=== PATIENT | male | born 1970 | race Caucasian/White ===

== ENCOUNTER 2021-07-06 15:52 | Emergency (ER) | payer MEDICARE ==
[2021-07-06] MEDS ORDERED: Sodium Chloride 0.9% 1000 ML 1,000 ML IV STA ×2 (16:10→17:44)
--- NOTE | 2021-07-06 16:49 | ERPHSYRPT ---
- History of Present Illness Time Seen by Provider: 07/06/21 16:02 Source: patient, EMS Exam Limitations: no limitations Patient Subjective Stated Complaint: R leg weakness Triage Nursing Assessment: pt to ED by EMS c/o R lower extremity weakness x 5 days and fall today. pt states his father called EMS for him after fall. normally ambulates with assistance. denies pain now. not anticoagulated, no LOC. denies neurologic hx. Physician History: 51 years old morbidly obese male with history of hypertension, diabetes amber litus, GERD, GB syndrome, ambulates with assistance presented in the ER via EMS with chief complaint of worsening generalized weakness for the last 5 days. Patient reports decreased oral intake, increased sleepiness without any chest pain palpitations or shortness of breath. No abdominal pain nausea or vomiting reported. Does have chronic diarrhea which is not any worse than usual. No fever or chills reported. Patient reports earlier he was trying to ambulate and his legs gave way and had a fall. Did not hit his head or loss of consciousness. Denies any known sick contact. Timing/Duration: day(s) (5), gradual onset, worse Severity: moderate Associated Symptoms: loss of appetite, weakness, No nausea, No vomiting, No abdominal pain, No shortness of breath, No heartburn, No diaphoresis, No cough, No chills, No chest pain, No fever, No headaches, No syncope, No seizure Allergies/Adverse Reactions: No Known Drug Allergies Allergy (Unverified 07/06/21 16:05) Home Medications: Glipizide 2.5 mg [Glucotrol Xl 2.5 MG] 2.5 mg PO DAILY 07/06/21 [History] Lisinopril 10 mg [Zestril 10 MG] 10 mg PO DAILY 07/06/21 [History] Metformin HCl 500 mg [Glucophage 500 MG] 500 mg PO BIDWM 07/06/21 [History] Omeprazole 10 mg PO DAILY 07/06/21 [History] Hx Tetanus, Diphtheria Vaccination/Date Given: No Hx Influenza Vaccination/Date Given: No Hx Pneumococcal Vaccination/Date Given: No Immunizations Up to Date: No Travel Risk - International Travel Have you traveled outside of the country in past 3 weeks: No - Coronavirus Screening Are you exhibiting any of the following symptoms?: No Close contact with a COVID-19 positive Pt in past 14-21 Days: No - Vaccine Status Have you recieved a Covid-19 vaccination: No - Review of Systems Constitutional: Fatigue, Weakness Eyes: No Symptoms Ears, Nose, & Throat: No Symptoms Respiratory: No Symptoms Cardiac: No Symptoms Abdominal/Gastrointestinal: Diarrhea Genitourinary Symptoms: No Symptoms Musculoskeletal: No Symptoms Skin: No Symptoms Neurological: No Symptoms Psychological: No Symptoms Endocrine: No Symptoms Hematologic/Lymphatic: No Symptoms - Past Medical History Pertinent Past Medical History: Yes Cardiac History: High Cholesterol, Hypertension Endocrine Medical History: Diabetes Type II GI Medical History: GERD Other Medical History: diana daniel, - Past Surgical History Past Surgical History: Yes Gastrointestinal: Cholecystectomy - Social History Smoking Status: Current every day smoker How long have you smoked: years Exposure to second hand smoke: Yes Drug Use: none Patient Lives Alone: No Significant Family History: no pertinent family hx - Nursing Vital Signs Nursing Vital Signs: Initial Vital Signs Temperature 97.5 F 07/06/21 15:55 Pulse Rate 106 H 07/06/21 15:55 Respiratory Rate 19 07/06/21 15:55 Blood Pressure 143/90 07/06/21 15:55 O2 Sat by Pulse Oximetry 96 07/06/21 15:55 Pain Scale Pain Intensity 0 - Physical Exam General Appearance: no apparent distress, alert Eye Exam: PERRL/EOMI, eyes nml inspection Ears, Nose, Throat Exam: normal ENT inspection, pharynx normal Neck Exam: normal inspection, non-tender, supple, full range of motion Respiratory Exam: normal breath sounds, lungs clear Cardiovascular Exam: regular rate/rhythm, normal heart sounds Gastrointestinal/Abdomen Exam: soft, normal bowel sounds, No tenderness Back Exam: normal inspection Extremity Exam: normal inspection, normal range of motion Neurologic Exam: alert, oriented x 3, cooperative, exterminator helper II-XII nml as tested, normal mood/affect, nml cerebellar function, sensation nml Skin Exam: normal color SpO2 Interpretation: normal SpO2: 96 O2 Delivery: Room Air - Course EKG Interpreted by Me: RATE ([id number]), Sinus Tach, NORMAL AXIS, NORMAL INTERVALS, Non-specific ST Changes Ordered Tests: Active Orders 24 hr Category Date Time Status EKG-ER Only STAT Care 07/06/21 16:10 Active IV Insertion STAT Care 07/06/21 16:10 Active CHEST 1 VIEW (PORTABLE) Stat Exams 07/06/21 16:11 Completed BLOOD CULTURE Stat Lab 07/06/21 16:40 Received CBC W DIFF Stat Lab 07/06/21 16:15 Completed CMP Stat Lab 07/06/21 16:15 Completed CULTURE,URINE Stat Lab 07/06/21 16:11 Received Lactic Acid Stat Lab 07/06/21 16:10 Completed Lactic Acid Stat Lab 07/06/21 18:42 Completed MAGNESIUM Stat Lab 07/06/21 16:15 Completed NT PRO BNP Stat Lab 07/06/21 16:15 Completed TROPONIN Q3H Lab 07/06/21 16:15 Completed TROPONIN Q3H Lab 07/06/21 19:00 Completed TROPONIN Q3H Lab 07/06/21 22:15 Ordered TROPONIN Q3H Lab 07/07/21 01:15 Ordered TROPONIN Q3H Lab 07/07/21 04:15 Ordered TSH, 3RD Generation Stat Lab 07/06/21 16:15 Completed UA W/RFX UR CULTURE Stat Lab 07/06/21 16:11 Completed Medication Summary Discontinued Medications Generic Name Dose Route Start Last Admin Trade Name Freq PRN Reason Stop Dose Admin Sodium Chloride 1,000 mls @ 999 mls/hr 07/06/21 16:10 07/06/21 18:13 Sodium Chloride 0.9% 1000 Ml IV 07/06/21 17:10 Infused .Q1H1M STA Infusion Sodium Chloride Confirm 07/06/21 17:07 Sodium Chloride 0.9% 1000 Ml Administered 07/06/21 17:08 Dose 1,000 mls @ ud .ROUTE .STK-MED ONE Ceftriaxone Sodium/Dextrose 2 g in 50 mls @ 100 mls/hr 07/06/21 17:22 07/06/21 18:13 Rocephin 2 Gm-D5w 50ml Bag IV 07/06/21 17:51 Infused STAT STA Infusion Ceftriaxone Sodium/Dextrose Confirm 07/06/21 17:42 Rocephin 2 Gm-D5w 50ml Bag Administered 07/06/21 17:43 Dose 2 g in 50 mls @ ud IV .STK-MED ONE Sodium Chloride 1,000 mls @ 999 mls/hr 07/06/21 17:44 07/06/21 17:54 Sodium Chloride 0.9% 1000 Ml IV 07/06/21 18:44 150 mls/hr .Q1H1M STA Administration Sodium Chloride Confirm 07/06/21 17:53 Sodium Chloride 0.9% 1000 Ml Administered 07/06/21 17:54 Dose 1,000 mls @ ud .ROUTE .K-MED ONE Potassium Chloride 40 meq 07/06/21 17:56 07/06/21 18:01 Potassium Chloride 10 Meq Tablet PO 07/06/21 17:57 40 meq STAT ONE Administration Potassium Chloride Confirm 07/06/21 18:00 Potassium Chloride 10 Meq Tablet Administered 07/06/21 18:01 Dose 40 meq PO .STK-MED ONE Lab/Rad Data: Laboratory Result Diagrams 07/06/21 16:15 07/06/21 16:15 Laboratory Results 07/06/21 07/06/21 07/06/21 Range/Units 19:00 18:42 16:15 WBC (4.0-10.5) K/mm3 RBC (4.1-5.6) M/mm3 Hgb (12.5-18.0) gm/dl Hct (42-50) % MCV (78-100) fl MCH (26-32) pg MCHC (32-36) g/dl RDW (11.5-14.0) % Plt Count (150-450) K/mm3 MPV (7.5-11.0) fl Gran % (36.0-66.0) % Eos # (Auto) (0-0.5) Absolute Lymphs (auto) (1.0-4.6) Absolute Monos (auto) (0.0-1.3) Lymphocytes % (24.0-44.0) % Monocytes % (0.0-12.0) % Eosinophils % (0.00-5.0) % Basophils % (0.0-0.4) % Absolute Granulocytes (1.4-6.9) Basophils # (0-0.4) Sodium (137-145) mmol/L Potassium (3.5-5.1) mmol/L Chloride (98-107) mmol/L Carbon Dioxide (22-30) mmol/L Anion Gap (5-15) MEQ/L BUN (9-20) mg/dL Creatinine (0.66-1.25) mg/dL Estimated GFR ML/MIN Glucose (74-106) mg/dL Lactic Acid 1.5 (0.4-2.0) Calcium (8.4-10.2) mg/dL Magnesium (1.6-2.3) mg/dL Total Bilirubin (0.2-1.3) mg/dL AST (17-59) U/L ALT (0-50) U/L Alkaline Phosphatase (38-126) U/L Troponin I < 0.012 < 0.012 (0.000-0.034) ng/mL NT-Pro-B Natriuret Pep (0-900) pg/mL Serum Total Protein (6.3-8.2) g/dL Albumin (3.5-5.0) g/dL TSH 3rd Generation (0.47-4.68) mIU/L Urine Color (YELLOW) Urine Appearance (CLEAR) Urine pH (5-6) Ur Specific Hammond (1.005-1.025) Urine Protein (Negative) Urine Ketones (NEGATIVE) Urine Blood (0-5) Logan/ul Urine Nitrite (NEGATIVE) Urine Bilirubin (NEGATIVE) Urine Urobilinogen (0-1) mg/dL Ur Leukocyte Esterase (NEGATIVE) Urine WBC (Auto) (0-5) /HPF Urine RBC (Auto) (0-2) /HPF U Hyaline Cast (Auto) (0-2) /LPF U Epithel Cells (Auto) (FEW) /HPF Urine Bacteria (Auto) (NEGATIVE) /HPF Urine Mucus (Auto) (NEGATIVE) /HPF Urine Culture Reflexed (NO) Urine Glucose (NEGATIVE) mg/dL 07/06/21 07/06/21 07/06/21 Range/Units 16:15 16:15 16:11 WBC 11.2 H (4.0-10.5) K/mm3 RBC 5.00 (4.1-5.6) M/mm3 Hgb 14.7 (12.5-18.0) gm/dl Hct 45.0 (42-50) % MCV 90.0 (78-100) fl MCH 29.4 (26-32) pg MCHC 32.7 (32-36) g/dl RDW 13.8 (11.5-14.0) % Plt Count 223 (150-450) K/mm3 MPV 11.8 H (7.5-11.0) fl Gran % 80.8 H (36.0-66.0) % Eos # (Auto) 0.05 (0-0.5) Absolute Lymphs (auto) 1.38 (1.0-4.6) Absolute Monos (auto) 0.71 (0.0-1.3) Lymphocytes % 12.3 L (24.0-44.0) % Monocytes % 6.3 (0.0-12.0) % Eosinophils % 0.4 (0.00-5.0) % Basophils % 0.2 (0.0-0.4) % Absolute Granulocytes 9.03 H (1.4-6.9) Basophils # 0.02 (0-0.4) Sodium 140 (137-145) mmol/L Potassium 3.2 L (3.5-5.1) mmol/L Chloride 101 (98-107) mmol/L Carbon Dioxide 26 (22-30) mmol/L Anion Gap 16.1 H (5-15) MEQ/L BUN 20 (9-20) mg/dL Creatinine 1.00 (0.66-1.25) mg/dL Estimated GFR > 60.0 ML/MIN Glucose 164 H (74-106) mg/dL Lactic Acid (0.4-2.0) Calcium 9.4 (8.4-10.2) mg/dL Magnesium 2.1 (1.6-2.3) mg/dL Total Bilirubin 0.80 (0.2-1.3) mg/dL AST 44 (17-59) U/L ALT 56 H (0-50) U/L Alkaline Phosphatase 80 (38-126) U/L Troponin I (0.000-0.034) ng/mL NT-Pro-B Natriuret Pep 53.0 (0-900) pg/mL Serum Total Protein 7.2 (6.3-8.2) g/dL Albumin 4.1 (3.5-5.0) g/dL TSH 3rd Generation 1.160 (0.47-4.68) mIU/L Urine Color TALI (YELLOW) Urine Appearance CLOUDY (CLEAR) Urine pH 5.0 (5-6) Ur Specific Hammond 1.027 (1.005-1.025) Urine Protein 100 (Negative) Urine Ketones NEGATIVE (NEGATIVE) Urine Blood NEGATIVE (0-5) Logan/ul Urine Nitrite NEGATIVE (NEGATIVE) Urine Bilirubin NEGATIVE (NEGATIVE) Urine Urobilinogen 4 (0-1) mg/dL Ur Leukocyte Esterase NEGATIVE (NEGATIVE) Urine WBC (Auto) 6-10 (0-5) /HPF Urine RBC (Auto) 0-2 (0-2) /HPF U Hyaline Cast (Auto) 3-5 (0-2) /LPF U Epithel Cells (Auto) RARE (FEW) /HPF Urine Bacteria (Auto) RARE (NEGATIVE) /HPF Urine Mucus (Auto) MANY (NEGATIVE) /HPF Urine Culture Reflexed YES (NO) Urine Glucose NEGATIVE (NEGATIVE) mg/dL 07/06/21 Range/Units 16:10 WBC (4.0-10.5) K/mm3 RBC (4.1-5.6) M/mm3 Hgb (12.5-18.0) gm/dl Hct (42-50) % MCV (78-100) fl MCH (26-32) pg MCHC (32-36) g/dl RDW (11.5-14.0) % Plt Count (150-450) K/mm3 MPV (7.5-11.0) fl Gran % (36.0-66.0) % Eos # (Auto) (0-0.5) Absolute Lymphs (auto) (1.0-4.6) Absolute Monos (auto) (0.0-1.3) Lymphocytes % (24.0-44.0) % Monocytes % (0.0-12.0) % Eosinophils % (0.00-5.0) % Basophils % (0.0-0.4) % Absolute Granulocytes (1.4-6.9) Basophils # (0-0.4) Sodium (137-145) mmol/L Potassium (3.5-5.1) mmol/L Chloride (98-107) mmol/L Carbon Dioxide (22-30) mmol/L Anion Gap (5-15) MEQ/L BUN (9-20) mg/dL Creatinine (0.66-1.25) mg/dL Estimated GFR ML/MIN Glucose (74-106) mg/dL Lactic Acid 4.1 H (0.4-2.0) Calcium (8.4-10.2) mg/dL Magnesium (1.6-2.3) mg/dL Total Bilirubin (0.2-1.3) mg/dL AST (17-59) U/L ALT (0-50) U/L Alkaline Phosphatase (38-126) U/L Troponin I (0.000-0.034) ng/mL NT-Pro-B Natriuret Pep (0-900) pg/mL Serum Total Protein (6.3-8.2) g/dL Albumin (3.5-5.0) g/dL TSH 3rd Generation (0.47-4.68) mIU/L Urine Color (YELLOW) Urine Appearance (CLEAR) Urine pH (5-6) Ur Specific Hammond (1.005-1.025) Urine Protein (Negative) Urine Ketones (NEGATIVE) Urine Blood (0-5) Logan/ul Urine Nitrite (NEGATIVE) Urine Bilirubin (NEGATIVE) Urine Urobilinogen (0-1) mg/dL Ur Leukocyte Esterase (NEGATIVE) Urine WBC (Auto) (0-5) /HPF Urine RBC (Auto) (0-2) /HPF U Hyaline Cast (Auto) (0-2) /LPF U Epithel Cells (Auto) (FEW) /HPF Urine Bacteria (Auto) (NEGATIVE) /HPF Urine Mucus (Auto) (NEGATIVE) /HPF Urine Culture Reflexed (NO) Urine Glucose (NEGATIVE) mg/dL - Progress Progress: improved, re-examined Progress Note: 07/06/21 19:42 51 years old is evaluated for generalized weakness fatigue and decreased oral intake. He has a white count of 11, chemistry showed mild low potassium for which he is given replacement orally. Has a lactate of 4.1 without any obvious focus of infection except for questionable UTI but patient does not have any complaint. Given a dose of Rocephin. Given fluid boluses, discussed with Dr. Francis who does not think patient needs to be admitted and his lactate is more of is secondary to dehydration/decreased oral intake. Repeat lactate is 1.5. We will continue with Keflex to go home for UTI. Recommended increase hydration and outpatient follow-up. Discussed signs symptoms of worsening needing return to ER which he seems understanding. Discussed with : Alexandre Counseled pt/family regarding: diagnosis, need for follow-up, rad results - Departure Departure Disposition: Home Clinical Impression: Generalized weakness, Dehydration, Hypokalemia, Acute UTI Condition: Stable Critical Care Time: No Referrals: HAYDEN,ISIDORO, [employer] [Primary Care Provider] - Follow up/PCP as directed (1-2 days for reevaluation) Instructions: Dehydration, Adult (DC), Generalized Weakness (DC) Additional Instructions: Drink plenty of fluids. Follow-up with your primary care for reevaluation. Return to ER for worsening weakness or if develop fever chills/vomiting etc. Prescriptions: Cephalexin Mh 500 mg [Keflex 500 mg] 500 mg PO TID #21 cap
--- NOTE | 2021-07-06 16:49 | XRAY ---
Indication: Weakness. Comparison: None Portable apical lordotic chest clear. Heart and mediastinal structures within normal limits. Bony thorax intact. Impression: Nonacute chest.
[2021-07-06 16:51] LABS: Absolute Neutrophil Ct (ANC) 9.03 (1.4-6.9); BASOPHIL % 0.2 % (0.0-0.4); Basophil (Absolute #) 0.02 (0-0.4); Eosinophil % 0.4 % (0.00-5.0); Eosinophil (Absolute #) 0.05 (0-0.5); Hemoglobin 14.7 gm/dl (12.5-18.0); Lymphocyte (Absolute #) 1.38 (1.0-4.6); Lymphocytes % 12.3 % (24.0-44.0); Mean Corpuscular Hemoglobin 29.4 pg (26-32); Mean Corpuscular Hgb Concent. 32.7 g/dl (32-36); Mean Platelet Volume 11.8 fl (7.5-11.0); Monocyte (Absolute #) 0.71 (0.0-1.3); Monocytes % 6.3 % (0.0-12.0); Neutrophil % 80.8 % (36.0-66.0); Platelet Count 223 K/mm3 (150-450); Red Cell Distribution Width 13.8 % (11.5-14.0); White Blood Count 11.2 K/mm3 (4.0-10.5)
[2021-07-06 17:00] LABS: Appearance CLOUDY (CLEAR); Bacteria RARE /HPF (NEGATIVE); Bilirubin NEGATIVE (NEGATIVE); Blood NEGATIVE Ery/ul (0-5); Epithelial Cells RARE /HPF (FEW); Glucose NEGATIVE (NEGATIVE); Ketones NEGATIVE (NEGATIVE); Leukocyte Esterase NEGATIVE (NEGATIVE); Mucus MANY /HPF (NEGATIVE); Nitrite NEGATIVE (NEGATIVE); Protein,Urine Dip 100 (Negative); RBC 0-2 /HPF (0-2); Specific Gravity 1.027 (1.005-1.025); Urobilinogen 4 mg/dL (0-1)
[2021-07-06] MEDS ORDERED: Sodium Chloride 0.9% 1000 ML 1,000 ML ONE ×2 (17:07→17:53)
[2021-07-06] MEDS ORDERED: ROCEPHIN 2 Gm-D5w 50ML BAG** 2 G/50 ML IVPB IV STA (17:22)
[2021-07-06 17:39] LABS: ALBUMIN 4.1 g/dL (3.5-5.0); ALKALINE PHOSPHATASE 80 U/L (38-126); ANION GAP 16.1 MEQ/L (5-15); BLOOD UREA NITROGEN 20 mg/dL (9-20); CHLORIDE 101 mmol/L (98-107); Calcium 9.4 mg/dL (8.4-10.2); Carbon Dioxide 26 mmol/L (22-30); EST GLOMERULAR FILTRATION RATE > 60.0 ML/MIN; Glucose 164 mg/dL (74-106); MAGNESIUM 2.1 mg/dL (1.6-2.3); Potassium 3.2 mmol/L (3.5-5.1); SGOT/AST 44 U/L (17-59); SGPT/ALT 56 U/L (0-50); SODIUM 140 mmol/L (137-145); Total Protein 7.2 g/dL (6.3-8.2)
[2021-07-06] MEDS ORDERED: ROCEPHIN 2 Gm-D5w 50ML BAG** 2 G/50 ML IVPB IV ONE (17:42)
[2021-07-06] MEDS ORDERED: Klor Con 10 MEQ PO ONE ×2 (17:56→18:00)
== END 2021-07-06 20:35 | disposition home or self-care (01) ==
LOC: ED 15:52
DX: R53.1 Weakness (principal)
CPT/HCPCS: 36000; 36415; 71045; 80053; 81001; 83605; 83735; 83880; 84443; 84484; 85025; 87040; 87086; 93005; 96360; 96361; 96365; 99285; J0696; A9270-GY